=== PATIENT | male | born 1980 ===

== ENCOUNTER 2017-05-26 19:57 | Inpatient (IN) ==
[~2017-05-26 19:57] MED LIST: ENOXAPARIN 40 MG/0.4 ML SYRINGE SUBCUT SCH
[2017-05-26] MEDS ORDERED: methylPREDNISolone SOD SUC 125 MG/2 ML VIAL IV STA (20:35)
[2017-05-26] MEDS ORDERED: CEFTAROLINE 600 MG in SODIUM CHLORIDE 0.9% 100 ML IV STA (20:35)
[2017-05-26] MEDS ORDERED: SODIUM CHLORIDE 0.9% 1,000 ML IV STA (20:36)
[2017-05-26] MEDS ORDERED: methylPREDNISolone SOD SUC 125 MG/2 ML VIAL ONE (20:39)
[2017-05-26] MEDS ORDERED: SODIUM CHLORIDE 0.9% 100 ML IV ONE (20:40)
[2017-05-26] MEDS ORDERED: CEFTAROLINE 600 MG VIAL IV ONE (20:40)
[2017-05-26] MEDS ORDERED: ONDANSETRON 4 MG/2 ML VIAL ONE (21:00)
[2017-05-26] MEDS ORDERED: HYDROmorphone 2 MG/1 ML VIAL ONE (21:01)
[2017-05-26] MEDS ORDERED: HYDROmorphone 2 MG/1 ML VIAL IV STA (21:04)
[2017-05-26] MEDS ORDERED: ONDANSETRON 4 MG/2 ML VIAL IV STA (21:04)
[2017-05-26 21:25] LABS: Basophils % 0.2 % (0.0-0.8); Eosinophils # 0.1 10*3/uL (0.0-0.87); Eosinophils % 1.5 % (0.00-10.9); Immature Granulocytes % 0.3 %; Immature Granulocytes Absolute 0.02 #; Lymphocytes # 0.7 10*3/uL (1.4-4.0); Lymphocytes % 11.9 % (21.2-54.2); Mean Corpuscular HGB Conc 33.3 GM/DL (32-36); Mean Corpuscular Hemoglobin 29 PG (27-34); Mean Corpuscular Volume 86.2 FL (87-102); Monocytes # 0.4 10*3/uL (0.11-0.8); Neutrophils # 4.7 10*3/uL (1.4-7.4); Neutrophils % 80.1 % (38.7-73.9); Platelet Count 187 T/CUMM (130-400); Red Blood Count 3.48 MC/CUMM (3.8-5.5); Red Cell Distribution Width 15.4 % (9.3-17.3); White Blood Count 5.9 T/CUMM (4-12)
[2017-05-26 21:38] LABS: PT Patient Result 10.6 SECS
[2017-05-26 21:49] LABS: Lactic Acid 1.3 MMOL/L (0.4-2.0)
[2017-05-26 21:50] LABS: Albumin 2.7 G/DL (3.4-5.0); Bilirubin,Total 0.5 MG/DL (0.2-1.0); Calcium 8.1 MG/DL (8.5-10.1); Magnesium 1.9 MG/DL (1.8-2.4); Osmolality,Calculated 279.5 MOS/KG (273-304); Potassium 3.7 MMOL/L (3.5-5.1); Total Protein 7.2 G/DL (6.4-8.3)
[2017-05-26 21:51] LABS: Troponin I Only < 0.015 NG/ML (0.00-0.045)
[2017-05-26 23:20] LABS: HIV Antigen/Antibody Result Nonreactive (Nonreactive)
[2017-05-26] MEDS ORDERED: ONDANSETRON 4 MG/2 ML VIAL IV PRN (23:40)
[2017-05-27] MEDS: SODIUM CHLORIDE 0.9% 1,000 ML IV SCH ×3 (00:49→21:31)
[2017-05-27] MEDS ORDERED: INFLUENZA VIRUS VACCINE 0.5 ML SYRINGE IM ONE (03:14)
[2017-05-27 05:56] LABS: Apearance,Urine Slightly Hazy (Clear); Bilirubin,Urine Negative (Negative); Blood, Urine Moderate mg/dL (Negative); Glucose,Urine (UA) Negative (Negative); Ketones,Urine Negative (Negative); Mucus,Urine Occasional /LPF (Occasional); Nitrite,Urine Positive (Negative); Protein,Urine 30 MG/DL; RBC,Urine 7 /HPF (0-4); Urine Color Yellow (Yellow); Urine Specific Gravity 1.013 (1.001-1.035); WBC,Urine 91 /HPF (0-6)
[2017-05-27 06:06] LABS: Barbiturates Screen,Urine Negative (Negative); Benzodiazepines Screen,Urine Negative (Negative); Cannabinoid Screen,Urine Negative (Negative); Opiate Screen,Urine Positive (Negative); Phencyclidine Screen,Urine Negative (Negative)
[2017-05-27 07:30] LABS: Hematocrit 29.1 VOL% (42.0-52.0); Hemoglobin 9.4 GM/DL (14.0-18.0); Immature Granulocytes % 0.2 %; Immature Granulocytes Absolute 0.01 #; Lymphocytes # 0.3 10*3/uL (1.4-4.0); Lymphocytes % 5.5 % (21.2-54.2); Mean Corpuscular HGB Conc 32.3 GM/DL (32-36); Mean Corpuscular Hemoglobin 28 PG (27-34); Mean Corpuscular Volume 87.9 FL (87-102); Mean Platelet Volume 11.3 FL (9.6-12.0); Monocytes # 0.1 10*3/uL (0.11-0.8); Monocytes % 1.4 % (1.7-12.7); Neutrophils # 4.6 10*3/uL (1.4-7.4); Neutrophils % 92.9 % (38.7-73.9); Platelet Count 178 T/CUMM (130-400); Red Blood Count 3.31 MC/CUMM (3.8-5.5); Red Cell Distribution Width 15.5 % (9.3-17.3); White Blood Count 4.9 T/CUMM (4-12)
[2017-05-27 07:59] LABS: Anisocytosis 1+; Band Neutrophils 22 % (0-10); Lymphocytes 2 % (20-55); Poikilocytosis 2+; Segmented Neutrophils 74 % (50-85); Total Cells Counted 100
[2017-05-27 08:00] LABS: Ovalocytes 1+
[2017-05-27 08:03] LABS: % Iron Saturation 18.7 % (18-50); Ferritin 927.3 ng/ml (26-388)
[2017-05-27 08:09] LABS: Calcium 7.3 MG/DL (8.5-10.1); Potassium 4.5 MMOL/L (3.5-5.1); Thyroid Stimulating Hormone 0.691 uIU/ml (0.358-3.74)
[2017-05-27] MEDS: ENOXAPARIN 40 MG/0.4 ML SYRINGE SUBCUT SCH (08:12)
[2017-05-27] MEDS: predniSONE 10 MG TABLET PO SCH ×3 (08:12→21:31)
[2017-05-27] MEDS: CEFTAROLINE 600 MG in SODIUM CHLORIDE 0.9% 50 ML IV SCH ×2 (08:13→21:31)
[2017-05-27] MEDS: COLLAGENASE OINT 30 GM TUBE TOP SCH (13:13)
[2017-05-28] MEDS: SODIUM CHLORIDE 0.9% 1,000 ML IV SCH ×2 (05:28→14:48)
[2017-05-28] MEDS: ENOXAPARIN 40 MG/0.4 ML SYRINGE SUBCUT SCH (08:18)
[2017-05-28] MEDS: predniSONE 10 MG TABLET PO SCH ×3 (08:18→20:57)
[2017-05-28] MEDS: COLLAGENASE OINT 30 GM TUBE TOP SCH (08:19)
[2017-05-28] MEDS: CEFTAROLINE 600 MG in SODIUM CHLORIDE 0.9% 50 ML IV SCH ×2 (08:19→20:57)
[2017-05-28] MEDS ORDERED: TUBERCULIN SKIN TEST 0.1 ML SYRINGE INTRADERM ONE (12:01)
[2017-05-28] MEDS: HYDROmorphone 2 MG/1 ML VIAL IV PRN (20:58)
[2017-05-28] MEDS ORDERED: SIMETHICONE CHEW 125 MG TABLET PO PRN (21:16)
[2017-05-29] MEDS: SODIUM CHLORIDE 0.9% 1,000 ML IV SCH ×4 (03:26→22:52)
[2017-05-29] MEDS: predniSONE 10 MG TABLET PO SCH ×3 (09:02→21:13)
[2017-05-29] MEDS: CEFTAROLINE 600 MG in SODIUM CHLORIDE 0.9% 50 ML IV SCH ×2 (09:02→21:13)
[2017-05-29] MEDS: ENOXAPARIN 40 MG/0.4 ML SYRINGE SUBCUT SCH (09:02)
[2017-05-29] MEDS: HYDROmorphone 2 MG/1 ML VIAL IV PRN ×3 (09:02→18:27)
[2017-05-29] MEDS: COLLAGENASE OINT 30 GM TUBE TOP SCH (09:07)
[2017-05-30] MEDS: SODIUM CHLORIDE 0.9% 1,000 ML IV SCH ×4 (02:16→19:45)
[2017-05-30] MEDS: HYDROmorphone 2 MG/1 ML VIAL IV PRN ×3 (02:20→23:04)
[2017-05-30] MEDS: ENOXAPARIN 40 MG/0.4 ML SYRINGE SUBCUT SCH (09:18)
[2017-05-30] MEDS: CEFTAROLINE 600 MG in SODIUM CHLORIDE 0.9% 50 ML IV SCH ×2 (09:18→20:09)
[2017-05-30] MEDS: predniSONE 10 MG TABLET PO SCH ×3 (09:18→20:09)
[2017-05-30] MEDS: COLLAGENASE OINT 30 GM TUBE TOP SCH (17:50)
[2017-05-31] MEDS: SODIUM CHLORIDE 0.9% 1,000 ML IV SCH (03:36)
[2017-05-31] MEDS: CEFTAROLINE 600 MG in SODIUM CHLORIDE 0.9% 50 ML IV SCH (09:39)
[2017-05-31] MEDS: ENOXAPARIN 40 MG/0.4 ML SYRINGE SUBCUT SCH (09:39)
[2017-05-31] MEDS: predniSONE 10 MG TABLET PO SCH (09:39)
[2017-05-31] MEDS: HYDROmorphone 2 MG/1 ML VIAL IV PRN (09:44)
[2017-05-31 12:12] VITALS: BP 121/92
== END 2017-05-31 15:45 | disposition hospice, home (50) | DRG 602 ==
LOC: EDUNIT# → EDBD → N.ED 19:57 → N.EDINP 23:36 → SUATTDRO 23:36 → N.5E 05-27 00:12
PROVIDERS: ADMIT Internal Medicine Geriatric Medicine; ATTEND Internal Medicine